=== PATIENT | female | born 1990 | race Caucasian/White ===

== ENCOUNTER 2018-03-27 09:08 | Emergency (ER) | payer BC, MEDICAID ==
[2018-03-27] MEDS ORDERED: KETOROLAC 30 MG/ML VIAL IVP ONE (09:37)
[2018-03-27] MEDS ORDERED: 0.9 % SODIUM CHLORIDE 1,000 ML BAG IV ONE (09:39)
[2018-03-27 09:48] LABS: HEMATOCRIT 44.4 % (35.0-47.0); HEMOGLOBIN 14.6 gm/dl (11.6-16.0); MEAN CELL VOLUME 91.7 fl (81-97); MEAN CORPUSCULAR HEMOGLOBIN 30.2 pg (27-33); MEAN CORPUSCULAR HGB CONC 32.9 g/dl (32-36); MEAN PLATELET VOLUME 11.3 fl (7.4-10.4); PLATELET COUNT 224 K/uL (130-400); RED BLOOD COUNT 4.84 M/uL (3.80-5.40); RED CELL DISTRIBUTION WIDTH 12.6 % (11.5-14.5); WHITE BLOOD COUNT W/O DIFF 8.7 K/uL (4.2-12.2)
--- NOTE | 2018-03-27 09:48 | Emergency Department Record ---
History of Present Illness - General Chief Complaint: Syncope Stated Complaint: BLACKED OUT Time Seen by Provider: 03/27/18 09:33 Source: Patient Mode of Arrival: Ambulatory Limitations: No limitations - History of Present Illness Initial Comments: The patient is here due to passing out at work less than an hour ago. She was working and then remembers waking up on the floor. She denies any prodromal symptoms and had no CP, SOB, FORD, or palpitations prior. The patient has had a typical migraine LATIF for the last couple of days but that is nothing new to her. When she woke up on the floor she had no incontinence or tongue biting. The event was witnessed by staff at work and there was no seizure activity observed. The patient has a hx of similar issues in the past multiple times and they seem to be precipitated by nausea. She was last here at [facility] just over 2 years ago for the same thing and was referred to a water quality specialist who did not give her any dx. The patient was at [facility] in Sep for the same thing and had multiple heart tests including a cardiac echo that was reported to be neg per the patient. She has no family hx of CAD, syncope, sudden or seizures. MD Complaint: Loss of consciousness Onset/Timin -: Minutes(s) Prodromal Symptoms: None Duration of Episode: 2 -: Minutes(s) - Rivas Coma Scale Eye Response: (4) Open spontaneously Motor Response: (6) Obeys commands Verbal Response: (5) Oriented Rivas Total: 15 - Related Data Allergies Allergy/AdvReac Type Severity Reaction Status Date / Time aspirin AdvReac VOMITING Verified 03/27/18 09:24 Travel Screening - Travel/Exposure Within Last 30 Days Have you traveled within the last 30 days?: No - Travel/Exposure Within Last Year Have you traveled outside the [place] in the last year?: No - Additonal Travel Details Have you been exposed to anyone with a communicable illness?: No - Travel Symptoms Symptom Screening: None Review of Systems Constitutional: Denies: Chills, Fever Eyes: Denies: Eye discharge ENT: Denies: Congestion Respiratory: Denies: Cough, Dyspnea Cardiovascular: Denies: Arrhythmia, Chest pain, Dyspnea on exertion Endocrine: Denies: Fatigue Past Medical History - SOCIAL HISTORY Smoking Status: Never smoker Alcohol Use: Occasional Drug Use: None - RESPIRATORY Hx Respiratory Disorders: No - CARDIOVASCULAR Hx Cardio Disorders: No - NEURO Hx Neuro Disorders: Yes Hx Headaches: Yes (chronic.) - GI Hx GI Disorders: No - Hx Genitourinary Disorders: No - ENDOCRINE Hx Endocrine Disorders: No - MUSCULOSKELETAL Hx Musculoskeletal Disorders: No - PSYCH Hx Psych Problems: No - HEMATOLOGY/ONCOLOGY Hx Hematology/Oncology Disorders: No Family Medical History Any Significant Family History?: No Hx Diabetes: Grandparents Hx HTN: Father, Mother, Brother/Sister Physical Exam - General General Appearance: Alert, Oriented x3, Cooperative, No acute distress - Head Head exam: Atraumatic, Normocephalic, Normal inspection - Eye Eye exam: Normal appearance, PERRL, EOMI - ENT Throat exam: Normal inspection. negative: Tonsillar erythema, Tonsillar exudate - Neck Neck exam: Normal inspection, Full ROM. negative: Lymphadenopathy, Meningismus , Tenderness (There is no Cspine tenderness.) - Respiratory Respiratory exam: Normal lung sounds bilaterally. negative: Respiratory distress - Cardiovascular Cardiovascular Exam: Regular rate, Normal rhythm, Normal heart sounds - GI/Abdominal GI/Abdominal exam: Soft, Normal bowel sounds. negative: Tenderness - Extremities Extremities exam: Normal inspection, Full ROM, Normal capillary refill. negative: Tenderness - Neurological Neurological exam: Alert, Normal gait, Oriented X3, Other (Neg Rhomberg and Drift.). negative: Abnormal gait, Altered, Motor sensory deficit - Skin Skin exam: negative: Rash Course Vital Signs 03/27/18 09:12 Temperature 97.6 F Pulse Rate 71 Respiratory 16 Rate Blood Pressure 122/81 Pulse Ox 99 - Reevaluation(s) Reevaluation #1: The patient is doing better but is still mildly nauseated with a very mild LATIF. She states she has been having increasing LATIF's over the last 2 months. Due to the fact she did hit her head during her syncopal attack we will order a head CT to be sure there is no intracranial abnormality. 03/27/18 10:48 Reevaluation #2: The patient is doing well at this time. She denies any CP, dizziness, lightheadedness or visual changes. Her LATIF is much improved. I did explain to her that her evaluation here has been all WNL's. I believe the syncopal issues is a chronic problem for her due to the fact it has happened multiple times in the past. She is to not drive until cleared by her PCP. 03/27/18 11:41 Medical Decision Making - Data Complexity MDM Data: Labs Ordered and/or Reviewed, X-Ray Ordered and/or Reviewed, EKG Ordered and/or Reviewed - Lab Data Result diagrams: 03/27/18 09:34 03/27/18 09:34 - EKG Data -: EKG Interpreted by Me EKG: No Acute Changes, Normal EKG - Radiology Data Radiology results: Report reviewed (Head CT: Neg.) Disposition Disposition: Discharge Clinical Impression: Syncope Qualifiers: Syncope type: vasovagal syncope Qualified Code(s): R55 - Syncope and collapse Disposition: Home, Self-Care Condition: (2) Stable Instructions: Syncope (ED) Additional Instructions: Please rest and drink plenty of fluids. Do not drive until cleared. Please see your family doctor for recheck next week and be cleared for driving. Return to the ER for any worsening symptoms. Forms: Patient Portal Access Time of Disposition: 11:44 Quality - Quality Measures Quality Measures: N/A - Blood Pressure Screening View Details: Yes Does Patient Have Any of the Following: No Blood Pressure Classification: Normal BP Reading Systolic Measurement: 114 Diastolic Measurement: 74 Screening for High Blood Pressure: < Normal BP, F/U Not Required > [G8783]
[2018-03-27 10:15] LABS: BLOOD UREA NITROGEN 9 mg/dL (6-20); CREATININE 0.7 mg/dL (0.5-0.9); EST GLOMERULAR FILTRATION RATE > 60 mL/min
[2018-03-27 10:16] LABS: TOTAL PROTEIN 7.2 g/dL (6.6-8.7)
[2018-03-27 10:18] LABS: GLUCOSE,RANDOM 84 mg/dL (74-109)
[2018-03-27 10:21] LABS: ALB/GLOB RATIO 1.6 (1.1-1.8); ALBUMIN 4.4 g/dL (4.0-5.0); ALKALINE PHOSPHATASE 68 U/L (35-104); ALT/SGPT 10 U/L (<33); AST/SGOT 11 U/L (10.0-35.0)
[2018-03-27] MEDS ORDERED: ACETAMINOPHEN 325 MG TAB PO ONE (10:24)
--- NOTE | 2018-03-28 15:01 | CT SCAN REPORT ---
EXAM: CT OF THE BRAIN HISTORY: SEVERE HEADACHES. TECHNIQUE: CT of the brain without contrast was obtained. Comparison: None. FINDINGS: The globes are intact. The paranasal sinuses and mastoid air cells are unremarkable. No displaced or depressed skull fracture. No intra or extraaxial hemorrhage. CT is limited for evaluation of acute infarct. No CT evidence for large or territorial acute infarct. No mass, mass effect, or midline shift. The scott white matter differentiation is preserved. IMPRESSION: NEGATIVE CT OF THE BRAIN EXAMINATION. JOB NUMBER: [id number] MTDD
== END 2018-03-27 12:05 | disposition home or self-care (01) ==
LOC: ER 09:08
DX: S09.90XA Unspecified injury of head, initial encounter (principal); R55 Syncope and collapse; R51 Headache; R11.0 Nausea; W18.30XA Fall on same level, unspecified, initial encounter; Y92.63 Factory as the place of occurrence of the external cause; Y99.0 Civilian activity done for income or pay
CPT/HCPCS: 99284 ×2; 96374; 80053; 84703; 85027; 70450; 93005; 93010; J1885; J7030